=== PATIENT | male | born 1955 | race Caucasian/White ===

== ENCOUNTER 2019-07-11 14:55 | Outpatient (CLI) | payer MEDICARE, OTHER, SELFPAY ==
--- NOTE | 2019-07-11 | CT_ITS ---
WS: [id number] CT CHEST WITH INTRAVENOUS CONTRAST HISTORY: F/U PULMONARY NODULE TECHNIQUE: Contiguous 5 mm axial imaging performed on the thorax. Coronal and sagittal reformats are submitted. All CT scans at [facility] use at least one of these dose optimization techniq ues: automated exposure control; mA and/or kV adjustment per patient size (includes targeted exams wh ere dose is matched to clinical indication); or iterative reconstruction. CONTRAST: Omnipaque 300; 95 mL IV. DLP: 787.99 mGy.cm COMPARISON: 07/05/2018 and 04/03/2018 Lungs and central airway: Well-circumscribed pulmonary nodule in the superior segment of the RIGHT lo wer lobe measures 6 mm. No increase in size since 04/03/2018. There is an additional calcified nodule measuring 12 mm in the more inferior RIGHT lower lobe which is benign and stable also. No new nodule s or pneumonia. Pleura: Normal. No pleural effusion. Heart and pericardium: Normal size heart. No pericardial effusion. Mediastinum and terri: No mediastinum or hilar adenopathy. Vessels: Normal size aortic and pulmonary artery. No coronary artery calcifications. Chest wall and lower neck: No soft tissue masses. Upper abdomen: Simple cyst upper pole RIGHT kidney measures 2.5 cm. No adrenal mass. There are additi onal scattered hypodensities within the liver which have been present on prior examinations. No incre ase in size or number. The largest measures 7 mm in the RIGHT lobe. Some of these hypodensities are t oo small to characterize. Osseous structures: No destructive bone lesions. CT/CT chest w con* [id number] IMPRESSION: 1. Stable superior segment RIGHT lower lobe pulmonary nodule measuring 6 mm. N o change since 04/03/2018. Recommend additional 1 year follow-up chest CT evalu ation. 2. Benign RIGHT lower lobe granuloma. 3. Hepatic and RIGHT renal cysts.
[2019-07-11] MEDS: iohexol 300 mg/mL 100 mL Btl IV (15:47)
== END 2019-07-11 14:56 | disposition home or self-care (01) ==
LOC: CT 14:56
PROVIDERS: PCP Internal Medicine
DX: J84.10 Pulmonary fibrosis, unspecified (principal); N28.1 Cyst of kidney, acquired; K76.89 Other specified diseases of liver; R91.1 Solitary pulmonary nodule
CPT/HCPCS: 71260

== ENCOUNTER 2019-07-14 06:00 | Outpatient (RCR) | payer MEDICARE, OTHER, SELFPAY | END 2019-08-13 23:59 | disposition home or self-care (01) | LOC: SPT 06:00 | PROVIDERS: PCP Internal Medicine; Referring Provider Internal Medicine; Visit Provider Internal Medicine | DX: M25.511 Pain in right shoulder (principal) | CPT/HCPCS: 97110; 97162 ==

== ENCOUNTER → 2019-10-14 11:03 | Outpatient (BNVA) | payer MEDICARE, OTHER, SELFPAY | PROVIDERS: PCP Internal Medicine; Visit Provider Specialist | DX: R29.90 Unspecified symptoms and signs involving the nervous system (principal); M47.12 Other spondylosis with myelopathy, cervical region | CPT/HCPCS: 99213; 99214 ==

== ENCOUNTER 2019-10-22 07:45 | Outpatient (CLI) | payer MEDICARE, OTHER, SELFPAY ==
--- NOTE | 2019-10-22 08:05 | MR_ITS ---
WS: [id number] MRI CERVICAL SPINE NONCONTRAST TECHNIQUE: Sagittal T1, T2 and STIR imaging. Axial T2, gradient, and fiesta imaging. CLINICAL INFORMATION: R20.0 Anesthesia of skin.. COMPARISON: MRI 9 4,012 FINDINGS: Straightening of the normal cervical lordosis. Cord signal is normal. No high-grade central canal noel nosis. Mild disc osteophyte complex at C5-C6 and C6-C7. C2-C3: Normal. C3-C4: Mild disc osteophytic ridging. Mild left and no significant right foraminal narrowing. Spinal canal is patent. Mild facet arthropathy. C4-C5: Mild disc osteophytic ridging. Moderate left and mild right bony foraminal narrowing. Mild fac et arthropathy. Spinal canal is patent. C5-C6: Disc osteophyte complex with endplate ridging. Moderate bilateral bony foraminal narrowing. Mi ld facet arthropathy. Spinal canal is patent. C6-C7: Disc osteophyte complex with slight effacement of ventral thecal sac. Moderate left greater th an right bony foraminal narrowing. C7-T1: Mild left and no significant right foraminal narrowing. Mild disc osteophyte complex. Spinal c anal is patent Visualized brain stem structures: Normal. Prevertebral soft tissues: Normal. MR/MR cervical spin wo con* [id number] IMPRESSION: 1. Straightening of the normal cervical lordosis. Cord signal is normal. No hi gh-grade central canal narrowing. 2. Mild disc osteophyte complexes C5-C6 and C6-C7 with slight effacement of ve ntral thecal sac. This appears unchanged since 2011. 3. Multilevel mild to moderate bony foraminal narrowing worse at left C4-5, b ilateral C5-C6 and bilateral C6-7.
[2019-10-22 10:08] LABS: Basophils % 0.4 %; Eosinophils # 0.2 10^3/uL (0.0-0.8); Eosinophils % 2.4 %; Hematocrit 51.5 % (42.0-52.0); Hemoglobin 16.6 g/dL (11.7-16.6); Lymphocytes # 1.2 10^3/uL (0.8-4.8); Mean Corpuscular HGB Conc 32.2 g/dL (30.0-36.0); Mean Corpuscular Hemoglobin 28.6 pg (28.0-34.0); Mean Corpuscular Volume 88.8 fL (80-94); Mean Platelet Volume 9.5 fL (7.4-10.4); Monocytes # 0.4 10^3/uL (0.2-0.9); Monocytes % 6.3 %; Neutrophils # 5.2 10^3/uL (1.8-7.7); Neutrophils % 73.5 %; Nucleated Red Blood Cells % 0 %; Platelet Count 228 10^3/cmm (130-400); Red Cell Distribution Width 13.6 % (12.1-15.1)
[2019-10-22 10:39] LABS: Alanine Aminotransferase 23 U/L (0-41); Albumin Level 4.1 g/dL (3.5-5.2); Alkaline Phosphatase 66 IU/L (40-130); Anion Gap 14.7 (5-19); Aspartate Amino Transferase 22 U/L (0-40); Blood Urea Nitrogen 16 mg/dL (8-23); Calcium 9.8 mg/dL (8.5-10.5); Carbon Dioxide 27 mmol/L (22-29); Chloride 101 mmol/L (98-107); Glucose 111 mg/dL (65-115); Osmolality Calculated 283 mOsm/kg (285-295); Potassium 4.7 mmol/L (3.5-5.1); Sodium 138 mmol/L (136-145); Thyroid Stimulating Hormone 1.66 uIU/mL (0.27-4.20); Total Bilirubin 0.5 mg/dL (0.15-1.2); Total Protein 7.1 g/dL (6.6-8.7)
[2019-10-22 11:00] LABS: Erythrocyte Sedimentation Rate 6 mm/hr (0-10)
== END 2019-10-22 07:46 | disposition home or self-care (01) ==
PROVIDERS: PCP Internal Medicine; Visit Provider Specialist
DX: Z00.00 Encounter for general adult medical examination without abnormal findings (principal); R20.0 Anesthesia of skin; M25.78 Osteophyte, vertebrae; M48.02 Spinal stenosis, cervical region
CPT/HCPCS: 36415; 72141; 80053; 84443; 85025; 85651

== ENCOUNTER → 2020-01-21 11:06 | Outpatient (BNVA) | payer OTHER, SELFPAY | PROVIDERS: PCP Internal Medicine; Visit Provider Specialist | DX: G47.33 Obstructive sleep apnea (adult) (pediatric) (principal); R07.9 Chest pain, unspecified; M47.12 Other spondylosis with myelopathy, cervical region | CPT/HCPCS: 99214 ==

== ENCOUNTER 2020-02-06 07:27 | Outpatient (CLI) | payer MEDICARE, OTHER, SELFPAY ==
--- NOTE | 2020-02-06 07:29 | ECG_ITS ---
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 Interpretive Statements NAME OF STUDY: LEXISCAN SESTAMIBI STRESS TEST INDICATION: [Chest Pain, ] Procedure: At the baseline, the blood pressure was 132/79 mmHg,with a heart rate of 60 bpm. The electrocardiogram showed normal sinus rhythm with sinus arrhythmia and no significant ST T wave changes. Lexiscan was infused over a period of 20 seconds. A total of 0.4 mg of Lexiscan was infused. Stress phase was continued for a total of 5 minutes. Heart rate at the end of stress phase was 77 bpm. Blood pressure was 123/73 mmHg. The EKG at the peak infusion revealed sinus rhythm with no significant changes. Sestamibi was injected 20 seconds after the Lexiscan infusion. Blood pressure at the end of recovery phase was 127/72 mmHg. Heart rate was 78 bpm Conclusion: 1. Normal EKG response to Lexiscan infusion. 2. No Lexiscan induced chest pain or cardiac arrhythmia. 3. Normal heart rate and blood pressure response. 4. Sestamibi/sestamibi perfusion scan pending; see separate report. Electronically Signed On 02-07-2020 17:09:07 CDT by Abner Aleman M.D. [email or web address]
--- NOTE | 2020-02-06 07:30 | NMCV_ITS ---
NM sully perf SPECT r/s* [id number] Elpidio Delgado Age: 64 Gender: M : 1955 Exam Date: 02/06/2020 07:30 Ordering Phys: Leslie Rivera MD Technologist: GRECIA Oliveros Exam Location: [facility] Indications: CHEST PAIN STRESS TEST Please [facility] IMAGE PROTOCOL Rest/Stress 1 Lexiscan Day Radiopharmaceutical Dose (mCi) Administration Site Administered by Rest: Tc-99m 10.7 IV GRECIA Diaz Sestamibi Stress:Tc-99m 32.9 IV GRECIA Diaz Sestamibi Rest: 06-Feb-2020 60 Discovery 630 Stress: 06-Feb-2020 30 Discovery 630 0.4mg Lexiscan. Images obtained in supine and prone position. SPECT RESULTS Technical Quality: Excellent Raw Data Analysis: Normal Image Corrections: No attenuation or motion correction applied Summed Stress Score: 0 Summed Rest Score: 3 Summed Difference Score: 0 PERFUSION FINDINGS Very small size perfusion abnormality of mild severity of apical septal, apical inferior and apical ware on rest images with improved tracer uptake on stress images. FUNCTIONAL RESULTS (calculated via Gated SPECT) Stress Image LV EF (%): 68 Stress EDV (mL):120 TID: 0.95 Stress ESV (mL):38 FUNCTIONAL FINDINGS: The left ventricle is normal in size. Transient Ischemia Dilatation of 0.95. There is normal left ventricular systolic function. The left ventricular ejection fraction is normal with a value of 68%. There is normal left ventricular wall thickening. Normal end-diastolic and end-systolic volumes. IMPRESSIONS 1. Myocardial perfusion imaging is normal. Attenuation artifact noted in apical ware. 2. Overall left ventricular systolic function is normal without regional wall motion abnormalities. 3. The left ventricular ejection fraction is normal with a value of 68%. 4. This study suggests a low likelihood of angiographically significant coronary artery disease. Yu Schultz MD (Electronically Signed) Final Date: 06 February 2020 18:25 S
[2020-02-06 07:40] VITALS: BMI 27.6
[2020-02-06] MEDS: regadenoson 0.4 Mg/5 ml Syringe IVP (09:07)
[2020-02-06 09:25] VITALS: BP 127/72; PULSE 77
== END 2020-02-06 07:28 | disposition home or self-care (01) ==
LOC: CDL 07:28
PROVIDERS: PCP Internal Medicine; Visit Provider Specialist
DX: R07.9 Chest pain, unspecified (principal)
CPT/HCPCS: 78452; 93017; A9500; J2785

== ENCOUNTER 2020-03-08 10:45 | Emergency (ER) | payer MEDICARE, OTHER, SELFPAY ==
[2020-03-08 10:54] VITALS: BP 128/95; PULSE 76; RESP 20; TEMP 37.2; O2SAT 97; BMI 28.0
--- NOTE | 2020-03-08 11:03 | W.ED.ANIMALB ---
HPI - Animal Bite General: Chief Complaint: Animal Bite Stated Complaint: ANIMAL SCRATCH Time Seen by Provider: 03/08/20 10:47 History of Present Illness: HPI narrative: Patient is a 64-year-old male comes to the ED after being scratched by a cat. Incident occurred on Monday. Patient says it was a wild cat and has not been able to find since incident. He is of course unaware of its vaccination history. Scratch occurred on patient's chin and he describes as being very mild and did not even realize it broke skin until his noticed he had some blood chin. Patient says he then immediately rinsed out and cleaned his chin up. He has no pain or swelling around chin currently. His biggest worry is that he needs to be vaccinated for rabies. Patient is up-to-date on his tetanus and got it within the last 6 years. Associated symptoms: Deny chills, fever(s) or headache(s) Review of Systems Const: Denies: fever(s), chills or fatigue Eyes: Denies: change in vision or eye discomfort ENMT: Denies: throat pain, odynophagia, nasal discharge or nasal congestion Card: Denies: chest pain, palpitations, edema, swelling of feet/ankles, dyspnea on exertion or orthopnea Resp: Denies: dyspnea, productive cough or non-productive cough GI: Denies: abdominal pain, nausea, vomiting, diarrhea, constipation or hematochezia : Denies: flank pain, difficulty urinating, dysuria or hematuria Musc: Denies: neck pain, back pain or extremity swelling Skin/Breast: Reports: new lesions (Patient was scratched by while cat on chin.); Denies: rash Neuro: Denies: headache(s), numbness in extremities or weakness in extremities [facility] PFSH: Social History Smoking and tobacco status: never smoked Physical Exam Const: COMMON NORMALS: no acute distress, patient oriented x3, healthy appearing and alert GENERAL APPEARANCE: cooperative and comfortable HENMT: COMMON NORMALS: normocephalic HEAD & SCALP: normocephalic FACE & SINUS: normal facial exam MOUTH: Normal oral and palatal mucosa present THROAT: posterior oropharynx normal and uvula midline OTHER: No visible abrasion or scar identified on chin. No erythema or warmth noted on chin either. Neck/C-Spine: COMMON NORMALS: supple GENERAL: Yes normal visual inspection Resp: COMMON NORMALS: normal respiratory effort, No retractions, No use of accessory muscles and clear to auscultation bilaterally AUSCULTATION: clear to auscultation bilaterally Cardio: COMMON NORMALS: regular rate, regular rhythm, S1 normal heart sound present, S2 normal heart sound present, No gallops present (Cardio), No clicks present (Cardio), No murmurs present (Cardio) and Peripheral pulses 2+ throughout RATE: regular rate RHYTHM: regular rhythm HEART SOUNDS: S1 normal heart sound present and S2 normal heart sound present PERIPHERAL PULSES: Peripheral pulses 2+ throughout GI: COMMON NORMALS: Normal to inspection, nondistended, normoactive bowel sounds present, Soft to palpation, non-tender and no masses PALPATION: Yes Soft to palpation : COMMON NORMALS: Yes no CVA tenderness BLADDER/KIDNEY EXAM: Yes no CVA tenderness Back/Pelvis: COMMON NORMALS: no CVA tenderness Extremity: COMMON NORMALS: normal to inspection Neuro: COMMON NORMALS: patient oriented x3 and moves all extremities SENSORIUM/ORIENTATION: Yes alert Skin: NARRATIVE SKIN EXAM: No visible abrasion or scar identified on chin. No erythema or warmth noted on chin either. GENERAL SKIN EXAM: dry skin Course Vital Signs: Vital signs: Vital Signs Temperature 98.9 F 03/08/20 10:54 Pulse Rate 76 03/08/20 10:54 Respiratory Rate 20 H 03/08/20 10:54 Blood Pressure 128/95 03/08/20 10:54 Pulse Oximetry 97 03/08/20 10:54 MDM - Animal Bite MDM Narrative: Medical decision making narrative: Patient is a 64-year-old male who comes to the ED after being scratched by A Wild Cat on the chin. Exam shows no visible abrasion or scarring on chin. No erythema or warmth identified either. patient's main concern is getting rabies vaccination. Patient is up-to-date on his tetanus and got it within the last 6 years. Patient was given the rabies vaccine and rabies immune globulin here in the ED. Patient was also given a dose of Augmentin while here in the ED. Patient sent home with prescription for azithromycin and Augmentin. He was told to return to urgent care or ED on day 3, 7 and 14 to get other rabies series shots. Follow-up with PCP in 7 to 10 days. Return to ED precautions given. Patient understood and agreed with plan. Discharge Plan Discharge Patient Disposition: Home Clinical Impression: Need for post exposure prophylaxis for rabies Cat scratch of face Qualifiers: Encounter type: initial encounter Qualified Code(s): S00.81XA - Abrasion of other part of head, initial encounter Condition: Stable Prescriptions: New amoxicillin-pot clavulanate 500-125 mg tablet 1 tab PO BID 7 Days Qty: 14 RF: 0 azithromycin 250 mg tablet See Rx Instructions .ROUTE .COMPLEX Qty: 6 RF: 0 No Action lisinopril 30 mg tablet 30 mg PO DAILY RF: 0 famotidine [Pepcid] 20 mg tablet 20 mg PO DAILY RF: 0 sulfamethoxazole-trimethoprim [Bactrim DS] 800-160 mg tablet 1 tab PO BID RF: 0 gabapentin 300 mg capsule 300 mg PO BID RF: 0 aspirin [Adult Aspirin Regimen] 81 mg tablet,delayed release (DR/EC) 81 mg PO DAILY RF: 0 hydrocodone-acetaminophen [[place]] 5-325 mg tablet 1 tab PO BID PRNRF: 0 tramadol 50 mg tablet 50 mg PO DAILY Qty: 30 RF: 5 fexofenadine [Megan Allergy] 60 mg tablet 60 mg PO BID RF: 0 alprazolam 0.25 mg tablet 0.25 mg PO DAILY PRNRF: 0 diphenhydramine HCl [Benadryl] 25 mg capsule 25 mg PO TID PRNRF: 0 melatonin 3 mg capsule 3 mg PO DAILY RF: 0 pramipexole [Mirapex] 1.5 mg tablet 1.5 mg PO DAILY RF: 0 tamsulosin [Flomax] 0.4 mg capsule 0.4 mg PO DAILY RF: 0 mecobalamin (vitamin B12) 5,000 mcg lozenge 5,000 mcg PO DAILY RF: 0 (DME) CPAP Supplies and Settings Adjustment See Rx Instructions .Route .MEDSUPPLY Qty: 1 RF: 0 Discharge Orders: Discharge Order (Routine); Ordered 03/08/20 Ordered By: Clement Martinez Referrals: Tess Weller MD [Primary Care Provider] - Discharge Diet: Regular Discharge Activity: Resume usual activity Patient Instructions: Rabies Vaccine (Injection), Rabies Immune Globulin (Injection), Rabies (ED), Cat Scratch Disease (ED) Activity Restrictions/Additional Instructions: Follow-up with medical provider as directed. return to the ED for rabies vaccination dose on day 3, 7 and 14. take medications as prescribed. Return to the ER or your medical provider if condition worsens. Please read and understand discharge instructions. If any questions, please ask. Coding Level of Care Code ED Superintendent Terminal for Maric[employer]en Fwd Exam Comprehensive
[2020-03-08] MEDS: rabies vaccine 2.5 unit SDV IM (12:06)
[2020-03-08] MEDS: rabies IG 300 unit/mL SDV 1 mL IM (12:15)
[2020-03-08] MEDS: amoxicillin-clav 500-125 mg Tablet 1 TAB PO (12:27)
[2020-03-08 13:10] VITALS: BP 114/71; PULSE 78; RESP 14; O2SAT 99
== END 2020-03-08 13:12 | disposition home or self-care (01) ==
PROVIDERS: Emergency Provider Physician Assistant; PCP Internal Medicine
DX: S00.81XA Abrasion of other part of head, initial encounter (principal); W55.03XA Scratched by cat, initial encounter; Z20.3 Contact with and (suspected) exposure to rabies; Z29.14 Encounter for prophylactic rabies immune globulin; Z79.82 Long term (current) use of aspirin; Z23 Encounter for immunization
CPT/HCPCS: 12345; 90375; 90471; 90675; 96372; 99281; 99283

== ENCOUNTER 2020-05-05 11:58 | Outpatient (RCR) | payer MEDICARE, OTHER, SELFPAY | END 2020-05-14 23:59 | disposition home or self-care (01) | LOC: SPT 11:58 | PROVIDERS: PCP Internal Medicine; Referring Provider Physician Assistant Surgical; Visit Provider Physician Assistant Surgical | DX: Z47.89 Encounter for other orthopedic aftercare (principal) | CPT/HCPCS: 97110; 97161 ==

== ENCOUNTER 2020-05-15 06:00 | Outpatient (RCR) | payer MEDICARE, OTHER, SELFPAY | END 2020-06-14 23:59 | disposition home or self-care (01) | LOC: SPT 06:00 | PROVIDERS: PCP Internal Medicine; Referring Provider Physician Assistant Surgical; Visit Provider Physician Assistant Surgical | DX: Z47.89 Encounter for other orthopedic aftercare (principal) | CPT/HCPCS: 97110 ==

== ENCOUNTER 2020-06-15 06:00 | Outpatient (RCR) | payer MEDICARE, OTHER, SELFPAY | END 2020-07-12 23:59 | disposition home or self-care (01) | LOC: SPT 06:00 | PROVIDERS: PCP Internal Medicine; Referring Provider Physician Assistant Surgical; Visit Provider Physician Assistant Surgical | DX: Z47.89 Encounter for other orthopedic aftercare (principal) | CPT/HCPCS: 97110 ==

== ENCOUNTER 2020-07-13 06:00 | Outpatient (RCR) | payer MEDICARE, OTHER, SELFPAY | END 2020-08-12 23:59 | disposition home or self-care (01) | LOC: SPT 06:00 | PROVIDERS: PCP Internal Medicine; Referring Provider Physician Assistant Surgical; Visit Provider Physician Assistant Surgical | DX: Z47.89 Encounter for other orthopedic aftercare (principal) | CPT/HCPCS: 97110 ==

== ENCOUNTER → 2020-07-22 08:42 | Outpatient (BNVA) | payer MEDICARE, OTHER, SELFPAY | PROVIDERS: PCP Internal Medicine; Visit Provider Specialist | DX: G47.33 Obstructive sleep apnea (adult) (pediatric) (principal) | CPT/HCPCS: 99214 ==

== ENCOUNTER 2020-08-13 06:00 | Outpatient (RCR) | payer MEDICARE, OTHER, SELFPAY | END 2020-09-01 23:00 | disposition home or self-care (01) | LOC: SPT 06:00 | PROVIDERS: PCP Internal Medicine; Referring Provider Physician Assistant Surgical; Visit Provider Physician Assistant Surgical | DX: Z47.89 Encounter for other orthopedic aftercare (principal); M25.511 Pain in right shoulder | CPT/HCPCS: 97110 ==

== ENCOUNTER → 2020-09-16 08:29 | Outpatient (BNVA) | payer MEDICARE, OTHER, SELFPAY | PROVIDERS: PCP Internal Medicine; Visit Provider Urology | DX: N41.1 Chronic prostatitis (principal); N39.9 Disorder of urinary system, unspecified; Z12.5 Encounter for screening for malignant neoplasm of prostate | CPT/HCPCS: 81003; G0103 ==

== ENCOUNTER 2020-10-01 07:05 | Outpatient (CLI) | payer MEDICARE, OTHER, SELFPAY ==
--- NOTE | 2020-10-01 | US_ITS ---
WS: [id number] ULTRASOUND THYROID TECHNIQUE: Ultrasound of the thyroid. CLINICAL INFORMATION: HOARSENESS COMPARISON: None. FINDINGS: Thyroid: Right and left thyroid lobes are normal in size and echotexture. No thyroid nodules are pres ent. Right thyroid lobe: 3.7 cm x 1.1 cm x 0.7 cm Left thyroid lobe: 3.7 cm x 1.5 cm x 1.2 cm. Isthmus: 0.5 mm. Cervical lymphadenopathy: None. US/US thyroid [id number] IMPRESSION: Normal thyroid ultrasound examination.
== END 2020-10-01 07:06 | disposition home or self-care (01) ==
PROVIDERS: PCP Internal Medicine; Visit Provider Internal Medicine
DX: R49.0 Dysphonia (principal)
CPT/HCPCS: 76536

== ENCOUNTER → 2021-02-08 11:32 | Outpatient (BNVA) | payer MEDICARE, OTHER, SELFPAY | PROVIDERS: PCP Internal Medicine; Visit Provider Specialist | DX: G47.33 Obstructive sleep apnea (adult) (pediatric) (principal); M47.12 Other spondylosis with myelopathy, cervical region; M54.5 Low back pain | CPT/HCPCS: 99214 ==

== ENCOUNTER → 2021-03-23 13:20 | Outpatient (BNVA) | payer MEDICARE, OTHER, SELFPAY | PROVIDERS: PCP Internal Medicine; Visit Provider Urology | DX: N41.9 Inflammatory disease of prostate, unspecified (principal) | CPT/HCPCS: 81003 ==

== ENCOUNTER → 2021-04-28 10:28 | Outpatient (BNVA) | payer MEDICARE, OTHER, SELFPAY | PROVIDERS: PCP Internal Medicine; Visit Provider Specialist | DX: G47.33 Obstructive sleep apnea (adult) (pediatric) (principal); M54.50 Low back pain, unspecified; M47.12 Other spondylosis with myelopathy, cervical region | CPT/HCPCS: 99213; 99214 ==

== ENCOUNTER → 2021-06-29 12:36 | Outpatient (BNVA) | payer MEDICARE, OTHER, SELFPAY | PROVIDERS: PCP Internal Medicine; Visit Provider Urology | DX: N41.1 Chronic prostatitis (principal); N30.20 Other chronic cystitis without hematuria; N40.1 Benign prostatic hyperplasia with lower urinary tract symptoms | CPT/HCPCS: 81003 ==

== ENCOUNTER → 2021-09-08 10:24 | Outpatient (BNVA) | payer MEDICARE, OTHER, SELFPAY | PROVIDERS: PCP Internal Medicine; Visit Provider Family Medicine | DX: S20.219A Contusion of unspecified front wall of thorax, initial encounter (principal); X58.XXXA Exposure to other specified factors, initial encounter | CPT/HCPCS: 71046 ==

== ENCOUNTER → 2022-02-07 08:56 | Outpatient (BNVA) | payer MEDICARE, OTHER, SELFPAY | PROVIDERS: PCP Internal Medicine; Visit Provider Specialist | DX: G47.33 Obstructive sleep apnea (adult) (pediatric) (principal); M76.899 Other specified enthesopathies of unspecified lower limb, excluding foot; M72.0 Palmar fascial fibromatosis [Dupuytren] | CPT/HCPCS: 99213 ==

== ENCOUNTER 2022-03-08 06:00 | Outpatient (RCR) | payer MEDICARE, OTHER, SELFPAY | END 2022-03-14 23:59 | disposition home or self-care (01) | LOC: SPT 06:00 | PROVIDERS: PCP Internal Medicine; Visit Provider Specialist | DX: M76.899 Other specified enthesopathies of unspecified lower limb, excluding foot (principal) | CPT/HCPCS: 97110; 97162 ==

== ENCOUNTER 2022-03-08 06:00 | Outpatient (RCR) | payer MEDICARE, OTHER, SELFPAY | END 2022-03-14 23:59 | disposition home or self-care (01) | LOC: SOT 06:00 | PROVIDERS: PCP Internal Medicine; Visit Provider Specialist | DX: M72.0 Palmar fascial fibromatosis [Dupuytren] (principal) | CPT/HCPCS: 97110; 97165 ==

== ENCOUNTER 2022-03-15 06:00 | Outpatient (RCR) | payer MEDICARE, OTHER, SELFPAY | END 2022-04-13 23:59 | disposition home or self-care (01) | LOC: SPT 06:00 | PROVIDERS: PCP Internal Medicine; Visit Provider Specialist | DX: M72.0 Palmar fascial fibromatosis [Dupuytren] (principal) | CPT/HCPCS: 97110; 97140 ==

== ENCOUNTER 2022-04-05 10:05 | Outpatient (CLI) | payer MEDICARE, OTHER, SELFPAY ==
--- NOTE | 2022-04-05 10:26 | XRR_ITS ---
PROCEDURE INFORMATION: Exam: XR Left Hip Exam date and time: 04/05/2022 10:31 AM Age: 66 years old Clinical indication: Patient HX: Left hip pain, worse past 6 months TECHNIQUE: Imaging protocol: Radiologic exam of the Left hip. Views: 2 or 3 views hip with pelvis when performed. COMPARISON: CT abdomen pelvis w con* [id number] 04/03/2018 1:02 PM FINDINGS: Bones/joints: Unremarkable. No acute fracture. Soft tissues: Unremarkable. XR/XR hip LT 2-3V wo/w pel* [id number] IMPRESSION: Negative for acute bony abnormality..
== END 2022-04-05 10:06 | disposition home or self-care (01) ==
PROVIDERS: PCP Internal Medicine; Visit Provider Internal Medicine
DX: M25.552 Pain in left hip (principal)
CPT/HCPCS: 73502

== ENCOUNTER 2022-05-05 06:40 | Outpatient (CLI) | payer MEDICARE, OTHER, SELFPAY ==
--- NOTE | 2022-05-05 07:17 | MR_ITS ---
WS: [id number] MRI LUMBAR SPINE NONCONTRAST TECHNIQUE: Sagittal T1, T2 and STIR imaging. Axial T1 and T2 imaging. CLINICAL INFORMATION: LEFT HIP PAIN COMPARISON: MRI 2008 FINDINGS: Mild lumbar curve. No acute compression. Disc desiccation worse at L3-L4 L4-L5 and L5-S1. This is pro gressed since 2018. Endplate degenerative changes at L3-L4. L1-L2: Normal. L2-L3: Mild annular bulging. Mild facet arthropathy. Spinal canal and foramen are patent. L3-L4: Mild disc bulging with endplate degenerative changes. Slight impingement traversing L4 nerve r oots bilaterally. Mild facet arthropathy. Small RIGHT foraminal protrusion contacts the exiting RIGHT L3 nerve root. Mild RIGHT greater than LEFT foraminal narrowing. L4-L5: Mild annular bulging with slight impingement traversing L5 nerve roots bilaterally. Mild facet arthropathy with ligamentum flavum hypertrophy. RIGHT foraminal protrusion with mild RIGHT foraminal narrowing. LEFT foramen is patent. L5-S1: LEFT eccentric disc bulging with mild to moderate LEFT foraminal narrowing and contact of the exiting LEFT L5 nerve root. RIGHT foramen is patent. Mild facet arthropathy. Spinal canal is patent. Partially visualized RIGHT renal cyst. 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 Visualized pelvic bony structures: Normal. Paravertebral soft tissues: Normal. MR/MR lumbar spine wo con* [id number] IMPRESSION: 1. Mild lumbar curve. No acute compression. No high-grade central canal stenos is. 2. Disc space narrowing L3-L5 has progressed compared to 2008. 3. RIGHT foraminal protrusion L3-L4 impinges the exiting RIGHT L3 nerve root. Recommend correlation for RIGHT L3 nerve root symptoms. Slight narrowing of the RIGHT greater than LEFT subarticular recess at this level. 4. Annular bulging L4-L5 with slight impingement traversing L5 nerve roots lynn aterally. RIGHT foraminal protrusion with mild RIGHT foraminal narrowing. 5. Mild to moderate LEFT L5-S1 foraminal narrowing with contact of the exiting LEFT L5 nerve root. 6. Above findings have progressed compared to 2008.
== END 2022-05-05 06:41 | disposition home or self-care (01) ==
LOC: RAD 06:41
PROVIDERS: PCP Internal Medicine; Visit Provider Internal Medicine
DX: M25.552 Pain in left hip (principal); M51.26 Other intervertebral disc displacement, lumbar region
CPT/HCPCS: 72148

== ENCOUNTER → 2022-07-25 15:33 | Outpatient (BNVA) | payer MEDICARE, OTHER, SELFPAY | PROVIDERS: PCP Family Medicine; Visit Provider Family Medicine | DX: E03.9 Hypothyroidism, unspecified (principal); M72.0 Palmar fascial fibromatosis [Dupuytren] | CPT/HCPCS: 80053; 84443; 85025; 86140 ==

== ENCOUNTER → 2022-09-30 09:09 | Outpatient (BNVA) | payer MEDICARE, OTHER, SELFPAY | PROVIDERS: PCP Family Medicine; Visit Provider Otolaryngology | DX: H91.93 Unspecified hearing loss, bilateral (principal) | CPT/HCPCS: 99203 ==

== ENCOUNTER 2022-10-24 09:05 | Outpatient (CLI) | payer MEDICARE, OTHER, SELFPAY ==
--- NOTE | 2022-10-24 09:30 | MR_ITS ---
WS: [id number] MRI HEAD WITH CONTRAST WITH ATTENTION TO THE INTERNAL AUDITORY CANALS TECHNIQUE: Sagittal T1, T2 axial, T2 axial flair, axial susceptibility weighted imaging, axial diffus ion weighted images, and coronal T2 images were obtained. Pre and post T1 axial and post T1 coronal i mages. ADC and FSPGR images. Post gadolinium images with attention to the internal auditory canals. A xial fiesta imaging. CLINICAL INFORMATION: unilateral hearing loss COMPARISON: None. FINDINGS: No evidence of restricted diffusion to suggest acute ischemia. Ventricular system and basal cisterns are patent. Mild small vessel changes. Mild parenchymal volume loss. Benign cerebellar arachnoid cyst or cisterna magna. Chronic thinning of the occipital bone. No hemosiderin on the susceptibly weighte d images. Normal optic chiasm and pituitary infundibulum. Temporal lobes and hippocampal formations a re normal in appearance. Proximal 7th and 8th cranial nerves are normal in appearance. Normal trigeminal nerve root entry zone s. No evidence of enhancing IAC or CP angle mass. LEFT mastoid air cells well aerated. No abnormal gadol inium enhancement. Normal dural venous sinuses. MR/MR iac's wo/w con* [id number] IMPRESSION: 1. Proximal 7th and 8th cranial nerves are normal in appearance. No evidence o f enhancing IAC or CP angle mass. 2. Normal trigeminal nerve root/zones. 3. Paranasal sinuses and mastoid air cells well aerated. 4. Normal visualized posterior nasopharynx. 5. Minimal small vessel changes. Mild parenchymal volume loss. 6. No hemosiderin on susceptibly weighted images. 7. 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
[2022-10-24] MEDS: gadobenate dimeglumine 20 mL vial IV (10:59)
== END 2022-10-24 09:06 | disposition home or self-care (01) ==
PROVIDERS: PCP Family Medicine; Visit Provider Otolaryngology
DX: H91.90 Unspecified hearing loss, unspecified ear (principal); G93.0 Cerebral cysts
CPT/HCPCS: 70553; A9577

== ENCOUNTER → 2022-11-07 08:26 | Outpatient (BNVA) | payer MEDICARE, OTHER, SELFPAY | PROVIDERS: PCP Family Medicine; Visit Provider Otolaryngology | DX: H91.93 Unspecified hearing loss, bilateral (principal) | CPT/HCPCS: 99212; 99213 ==

== ENCOUNTER 2022-12-18 05:24 | Emergency (ER) | payer MEDICARE, OTHER, SELFPAY ==
[2022-12-18 05:27] VITALS: BP 132/64; PULSE 79; RESP 16; TEMP 37.1; O2SAT 95; BMI 27.1
[2022-12-18 05:44] LABS: Basophils # 0.1 10^3/uL (0.0-0.1); Basophils % 0.4 %; Eosinophils # 0.3 10^3/uL (0.0-0.8); Eosinophils % 2.2 %; Hematocrit 49.6 % (42.0-52.0); Hemoglobin 16.4 g/dL (11.7-16.6); Lymphocytes # 1.8 10^3/uL (0.8-4.8); Lymphocytes % 16.1 %; Mean Corpuscular HGB Conc 33.1 g/dL (30.0-36.0); Mean Corpuscular Hemoglobin 28.7 pg (28.0-34.0); Mean Corpuscular Volume 86.7 fl (80-94); Monocytes # 1.1 10^3/uL (0.2-0.9); Monocytes % 9.5 %; Neutrophils # 7.97 10^3/uL (1.8-7.7); Neutrophils % 71.2 %; Nucleated Red Blood Cells % 0 %; Platelet Count 245 10^3/cmm (130-400); Red Blood Count 5.72 10^6/uL (4.1-5.3); Red Cell Distribution Width 13.9 % (12.1-15.1); White Blood Count 11.2 10^3/uL (4.0-10.0)
[2022-12-18 05:49] VITALS: BP 132/64; PULSE 79; RESP 16; O2SAT 93
[2022-12-18 05:57] LABS: INR 0.93 (0.8-1.2)
[2022-12-18 06:02] LABS: Alanine Aminotransferase 17 U/L (0-41); Albumin Level 4.2 g/dL (3.5-5.2); Alkaline Phosphatase 95 U/L (40-130); Anion Gap 12.9 (5-19); Aspartate Amino Transferase 17 U/L (0-40); Blood Urea Nitrogen 23 mg/dL (8-23); Calcium 9.2 mg/dL (8.5-10.5); Carbon Dioxide 28 mmol/L (22-29); Chloride 104 mmol/L (98-107); Globulin 2.2 g/dL (1.3-4.6); Glomerular Filtration Rate 74.3 mL/min (90-130); Glucose 110 mg/dL (65-115); Osmolality Calculated 296 mOsm/kg (285-295); Potassium 3.9 mmol/L (3.5-5.1); Sodium 141 mmol/L (136-145); Total Bilirubin 0.3 mg/dL (0.15-1.2); Total Protein 6.4 g/dL (6.6-8.7)
--- NOTE | 2022-12-18 06:07 | ED_ITS ---
HPI - GI Bleed General: Chief complaint: GI Bleed Stated complaint: rectal bleeding Time Seen by Provider: 12/18/22 06:07 Source: patient Mode of arrival: ambulatory Limitations: no limitations History of Present Illness: 67-year-old male who states that he ate at a [employer] restaurant yesterday and just after he started having severe abdominal cramping states he had an episode of diarrhea and had a slight amount of blood in it. He states that he also had a bloody bowel movement this morning with he states a small amount of blood as well no clots he states his pain is improved greatly he is in no pain currently denies any black tarry stools. Associated symptoms: Reports abdominal pain; Denies chills, fever(s), nausea, rash or vomiting Review of Systems Const: Denies: fever(s), chills, body aches or change in appetite ENMT: Denies: throat pain or dental pain Card: Denies: chest pain Resp: Denies: dyspnea GI: Reports: abdominal pain and hematochezia; Denies: nausea, vomiting or diarrhea Musc: Denies: neck pain or back pain Skin/Breast: Denies: rash PFSH ED PFSH: Medical History Chronic prostatitis Essential hypertension Hearing loss Numbness of arm Obstructive sleep apnea Surgical History H/O shoulder surgery Family History Father , at age 94 Blood clot associated with vein wall inflammation Mother , at age 83 Cerebral amyloid angiopathy Social History Smoking and tobacco status: never smoked Second hand smoke exposure: No Alcohol intake: current Alcohol intake frequency: few times a week Substance/Drug Use: never Marital status: Current occupational status: retired Current occupation: [employer] Physical Exam Const: COMMON NORMALS: no acute distress, patient oriented x3 and healthy appearing HENMT: COMMON NORMALS: normocephalic and atraumatic HEAD & SCALP: normocephalic and atraumatic Neck/C-Spine: COMMON NORMALS: full ROM and supple Chest: COMMONS NORMALS: normal inspection of the chest Resp: COMMON NORMALS: normal respiratory effort Cardio: COMMON NORMALS: regular rate, regular rhythm and No murmurs present (Cardio) RATE: regular rate RHYTHM: regular rhythm GI: COMMON NORMALS: Normal to inspection, nondistended, normoactive bowel sounds present, Soft to palpation, non-tender and no masses PALPATION: Yes Soft to palpation OTHER: no blood on rectal exam internal hemorrhoid noted Extremity: COMMON NORMALS: normal to inspection and full ROM Neuro: COMMON NORMALS: patient oriented x3, moves all extremities and no focal motor deficits Psych: COMMON NORMALS: mental status grossly normal, Normal thought process present and cooperative THOUGHT PROCESS: Normal thought process present Skin: COMMON NORMALS: no rashes or lesions noted and no wounds GENERAL SKIN EXAM: no rashes or lesions noted Course Vital Signs: Vital signs: Vital Signs Temperature 98.8 F 12/18/22 05:27 Pulse Rate 79 12/18/22 05:27 Respiratory Rate 16 12/18/22 05:27 Blood Pressure 132/64 12/18/22 05:27 Pulse Oximetry 95 12/18/22 05:27 Oxygen Delivery Me thod Room Air 12/18/22 05:27 MDM - GI Bleed Medical Decision Making Patient presents here with abdominal pain also some blood in his stool on rectal exam he does have an internal hemorrhoid no bleeding at this time simply GI distress from food causing his pain his abdominal exam is benign no tenderness his white count is normal his hemoglobin is normal he stable for discharge she is to follow-up with PCP if he does have worsening pain or worsening bleeding he is to return. Lab Data 12/18/22 05:38 12/18/22 05:38 Laboratory Results WBC 11.2 10^3/uL (4.0-10.0) H 12/18/22 05:38 RBC 5.72 10^6/uL (4.1-5.3) H 12/18/22 05:38 Hgb 16.4 g/dL (11.7-16.6) 12/18/22 05:38 Hct 49.6 % (42.0-52.0) 12/18/22 05:38 MCV 86.7 fl (80-94) 12/18/22 05:38 MCH 28.7 pg (28.0-34.0) 12/18/22 05:38 MCHC 33.1 g/dL (30.0-36.0) 12/18/22 05:38 RDW 13.9 % (12.1-15.1) 12/18/22 05:38 Plt Count 245 10^3/cmm (130-400) 12/18/22 05:38 MPV 9.0 fL (7.4-10.4) 12/18/22 05:38 Neut % (Auto) 71.2 % 12/18/22 05:38 Lymph % (Auto) 16.1 % 12/18/22 05:38 [place] % (Auto) 9.5 % 12/18/22 05:38 Eos % (Auto) 2.2 % 12/18/22 05:38 Baso % (Auto) 0.4 % 12/18/22 05:38 Neut # (Auto) 7.97 10^3/uL (1.8-7.7) H 12/18/22 05:38 Lymph # (Auto) 1.8 10^3/uL (0.8-4.8) 12/18/22 05:38 [place] # (Auto) 1.1 10^3/uL (0.2-0.9) H 12/18/22 05:38 Eos # (Auto) 0.3 10^3/uL (0.0-0.8) 12/18/22 05:38 Baso # (Auto) 0.1 10^3/uL (0.0-0.1) 12/18/22 05:38 Nucleated RBC % (auto) 0 % 12/18/22 05:38 Nucleated RBCs # 0.0 /100WBC 12/18/22 05:38 PT 12.70 SECONDS (12.1-14.9) 12/18/22 05:38 INR 0.93 (0.8-1.2) 12/18/22 05:38 Sodium 141 mmol/L (136-145) 12/18/22 05:38 Potassium 3.9 mmol/L (3.5-5.1) 12/18/22 05:38 Chloride 104 mmol/L (98-107) 12/18/22 05:38 Carbon Dioxide 28 mmol/L (22-29) 12/18/22 05:38 Anion Gap 12.9 (5-19) 12/18/22 05:38 BUN 23 mg/dL (8-23) 12/18/22 05:38 Creatinine 1.0 mg/dL (0.7-1.2) 12/18/22 05:38 Glucose 110 mg/dL (65-115) 12/18/22 05:38 Calcium 9.2 mg/dL (8.5-10.5) 12/18/22 05:38 Total Bilirubin 0.3 mg/dL (0.15-1.2) 12/18/22 05:38 AST 17 U/L (0-40) 12/18/22 05:38 ALT 17 U/L (0-41) 12/18/22 05:38 Alkaline Phosphatase 95 U/L (40-130) 12/18/22 05:38 Albumin 4.2 g/dL (3.5-5.2) 12/18/22 05:38 Globulin 2.2 g/dL (1.3-4.6) 12/18/22 05:38 Discharge Plan Discharge Patient Disposition: Home Clinical Impression: Hemorrhoids, Lower gastrointestinal hemorrhage, Abdominal pain Condition: Stable Prescriptions: New ondansetron 4 mg tablet,disintegrating 4 mg PO Q6H PRN (Reason: nausea and vomiting) Qty: 14 0RF No Action famotidine [Pepcid] 40 mg tablet 40 mg PO BID carisoprodol [Soma] 350 mg tablet 175 mg PO TID PRN Patient Comments: 1/2 tab melatonin 3 mg capsule 3 mg PO DAILY PRN Patient Comments: nightly zolpidem [Ambien] 10 mg tablet 10 mg PO .prn Qty: 30 1RF Rx Instructions: Take before bed fexofenadine [Megan Allergy] 60 mg tablet 60 mg PO BID diphenhydramine HCl [Benadryl] 25 mg capsule 25 mg PO TID PRN pramipexole [Mirapex] 1.5 mg tablet 0.75 mg PO DAILY esomeprazole magnesium 20 mg capsule,delayed release(DR/EC) 20 mg PO DAILY magnesium 250 mg tablet 250 mg PO BID meloxicam 15 mg tablet 15 mg PO DAILY tramadol 100 mg tablet 100 mg PO BID PRN (Reason: pain) 30 Days Qty: 60 2RF alprazolam 0.25 mg tablet 0.25 mg PO DAILY PRN (Reason: anxiety) 30 Days Qty: 30 5RF hydrocodone-acetaminophen 10-325 mg tablet 1 tab PO TID PRN (Reason: pain) 30 Days Qty: 60 0RF hydrocodone-acetaminophen 10-325 mg tablet 1 tab PO TID PRN (Reason: pain) 30 Days Qty: 60 0RF Rx Instructions: DO NOT FILL UNTIL 11/19/21 sulfamethoxazole-trimethoprim 800-160 mg tablet 1 tab PO BID Qty: 60 12RF doxycycline hyclate 100 mg capsule See Rx Instructions .ROUTE .COMPLEX Qty: 60 6RF Dose Instruction: Take 1 capsule by mouth twice daily Rx Instructions: Take 1 capsule by mouth twice daily finasteride 5 mg tablet See Rx Instructions .ROUTE .COMPLEX Qty: 90 3RF Dose Instruction: Take 1 tablet by mouth once daily Rx Instructions: Take 1 tablet by mouth once daily lisinopril 40 mg tablet 40 mg PO DAILY Qty: 90 3RF amlodipine 2.5 mg tablet 2.5 mg PO DAILY Qty: 90 0RF Discharge Orders: Discharge ED (Routine); Ordered 12/18/22 Ordered By: Mitzy Jimenez Referrals: Didi Gore MD [Primary Care Provider] - Discharge Diet: Advance as tolerated Discharge Activity: Resume usual activity Patient Instructions: Abdominal Pain (ED) Coding Level of Care Code 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
[2022-12-18] MEDS: ondansetron 4 MG Tablet PO (06:14)
== END 2022-12-18 06:15 | disposition home or self-care (01) ==
PROVIDERS: Emergency Provider Emergency Medicine; PCP Family Medicine
DX: I10 Essential (primary) hypertension (principal); K64.4 Residual hemorrhoidal skin tags; R10.9 Unspecified abdominal pain; K92.1 Melena
CPT/HCPCS: 80053; 85025; 85610; 99283; Q0162

== ENCOUNTER → 2023-02-07 09:06 | Outpatient (BNVA) | payer MEDICARE, OTHER, SELFPAY | PROVIDERS: PCP Family Medicine; Visit Provider Specialist | DX: R29.90 Unspecified symptoms and signs involving the nervous system; G47.33 Obstructive sleep apnea (adult) (pediatric); M54.16 Radiculopathy, lumbar region | CPT/HCPCS: 99213 ==

== ENCOUNTER → 2023-04-28 07:51 | Outpatient (BNVA) | payer MEDICARE, OTHER, SELFPAY | PROVIDERS: PCP Family Medicine; Visit Provider Podiatrist Foot & Ankle Surgery | DX: M19.071 Primary osteoarthritis, right ankle and foot; S93.601A Unspecified sprain of right foot, initial encounter; X58.XXXA Exposure to other specified factors, initial encounter | CPT/HCPCS: 73630; 99203 ==

== ENCOUNTER → 2023-08-08 09:35 | Outpatient (BNVA) | payer MEDICARE, OTHER, SELFPAY | PROVIDERS: PCP Family Medicine; Visit Provider Specialist | DX: R29.90 Unspecified symptoms and signs involving the nervous system (principal); G31.84 Mild cognitive impairment of uncertain or unknown etiology; M54.16 Radiculopathy, lumbar region; G47.33 Obstructive sleep apnea (adult) (pediatric) | CPT/HCPCS: 99214 ==

== ENCOUNTER → 2023-10-03 10:52 | Outpatient (BNVA) | payer MEDICARE, OTHER, SELFPAY | PROVIDERS: PCP Family Medicine; Visit Provider Family Medicine | DX: I10 Essential (primary) hypertension (principal); N41.1 Chronic prostatitis; N40.1 Benign prostatic hyperplasia with lower urinary tract symptoms; K21.9 Gastro-esophageal reflux disease without esophagitis; G47.33 Obstructive sleep apnea (adult) (pediatric); H90.3 Sensorineural hearing loss, bilateral; M54.16 Radiculopathy, lumbar region; R40.0 Somnolence | CPT/HCPCS: 80053; 81000; 84153; 85025; 87086 ==

== ENCOUNTER → 2023-10-13 10:12 | Outpatient (BNVA) | payer MEDICARE, OTHER, SELFPAY | PROVIDERS: PCP Family Medicine; Visit Provider Emergency Medicine | DX: S92.515A Nondisplaced fracture of proximal phalanx of left lesser toe(s), initial encounter for closed fracture (principal); X58.XXXA Exposure to other specified factors, initial encounter | CPT/HCPCS: 73630 ==

== ENCOUNTER → 2023-10-30 09:12 | Outpatient (BNVA) | payer MEDICARE, OTHER, SELFPAY | PROVIDERS: PCP Family Medicine; Visit Provider Family Medicine | DX: Z91.89 Other specified personal risk factors, not elsewhere classified (principal); R79.89 Other specified abnormal findings of blood chemistry; I95.9 Hypotension, unspecified; I95.0 Idiopathic hypotension; Z79.899 Other long term (current) drug therapy | CPT/HCPCS: 80053; 84403; 85025; 85651; 86618; 86666; 86757 ==

== ENCOUNTER → 2024-02-09 08:00 | Outpatient (BNVA) | payer MEDICARE, OTHER, SELFPAY | PROVIDERS: PCP Family Medicine; Visit Provider Specialist | DX: M76.899 Other specified enthesopathies of unspecified lower limb, excluding foot (principal); M72.0 Palmar fascial fibromatosis [Dupuytren]; R29.90 Unspecified symptoms and signs involving the nervous system; G31.84 Mild cognitive impairment of uncertain or unknown etiology; M54.16 Radiculopathy, lumbar region; G47.33 Obstructive sleep apnea (adult) (pediatric) | CPT/HCPCS: 99213 ==

== ENCOUNTER 2024-03-18 12:18 | Outpatient (CLI) | payer MEDICARE, OTHER, SELFPAY ==
--- NOTE | 2024-03-18 12:24 | XRR_ITS ---
PROCEDURE INFORMATION: Exam: XR Right Hip Exam date and time: 03/18/2024 12:29 PM Age: 68 years old Clinical indication: Hip pain; Right hip; Additional info: Increased rest pain of right hip TECHNIQUE: Imaging protocol: Radiologic exam of the right hip. Views: 1 view hip with pelvis when performed. COMPARISON: CT abdomen pelvis w con* [id number] 04/03/2018 1:02 PM FINDINGS: Bones/joints: Mild osteoarthritis of the right hip without evidence of fracture or subluxation. Sacrum and coccyx are partially obscured by bowel gas/stool. Soft tissues: No gross soft tissue abnormality. XR/XR hip RT 2-3V wo/w pel* [id number] IMPRESSION: 1. Mild osteoarthritis without evidence of fracture or subluxation. If there is concern for labral, muscle or tendon pathology, follow-up outpatient MRI may be helpful.
== END 2024-03-18 12:19 | disposition home or self-care (01) ==
LOC: RAD 12:20
PROVIDERS: PCP Family Medicine; Visit Provider Family Medicine
DX: M16.11 Unilateral primary osteoarthritis, right hip (principal); I10 Essential (primary) hypertension; R79.89 Other specified abnormal findings of blood chemistry
CPT/HCPCS: 73502; 80053; 84403; 85025

== ENCOUNTER 2024-05-22 09:36 | Outpatient (RCR) | payer MEDICARE, OTHER, SELFPAY | END 2024-06-14 23:59 | disposition home or self-care (01) | LOC: SPT 09:36 | PROVIDERS: PCP Family Medicine; Visit Provider Family Medicine | DX: M54.50 Low back pain, unspecified (principal) | CPT/HCPCS: 97110; 97161; 97530 ==

== ENCOUNTER → 2024-06-06 07:40 | Outpatient (BNVA) | payer MEDICARE, OTHER, SELFPAY | PROVIDERS: PCP Family Medicine; Visit Provider Specialist | DX: M76.899 Other specified enthesopathies of unspecified lower limb, excluding foot (principal); M72.0 Palmar fascial fibromatosis [Dupuytren]; G31.84 Mild cognitive impairment of uncertain or unknown etiology; I20.0 Unstable angina; R29.90 Unspecified symptoms and signs involving the nervous system; M54.16 Radiculopathy, lumbar region; G47.33 Obstructive sleep apnea (adult) (pediatric) | CPT/HCPCS: 99214 ==

== ENCOUNTER 2024-06-15 06:00 | Outpatient (RCR) | payer MEDICARE, OTHER, SELFPAY | END 2024-07-12 23:59 | disposition home or self-care (01) | LOC: SPT 06:00 | PROVIDERS: PCP Family Medicine; Visit Provider Family Medicine | DX: M54.50 Low back pain, unspecified (principal) | CPT/HCPCS: 97110 ==

== ENCOUNTER 2024-07-08 08:39 | Outpatient (CLI) | payer MEDICARE, OTHER, SELFPAY ==
[2024-07-10 20:40] LABS: Phosphorylated tau217 0.09 pg/mL (< OR = 0.15)
== END 2024-07-08 08:40 | disposition home or self-care (01) ==
LOC: LAB 08:48
PROVIDERS: PCP Family Medicine; Visit Provider Specialist
DX: G31.84 Mild cognitive impairment of uncertain or unknown etiology (principal); I20.0 Unstable angina; G47.33 Obstructive sleep apnea (adult) (pediatric); R29.90 Unspecified symptoms and signs involving the nervous system; M54.16 Radiculopathy, lumbar region
CPT/HCPCS: 36415; 82542; 83520; 99214

== ENCOUNTER 2024-07-13 06:00 | Outpatient (RCR) | payer MEDICARE, OTHER, SELFPAY | END 2024-08-12 23:59 | disposition home or self-care (01) | LOC: SPT 06:00 | PROVIDERS: PCP Family Medicine; Visit Provider Family Medicine | DX: M54.50 Low back pain, unspecified (principal) | CPT/HCPCS: 97110 ==

== ENCOUNTER 2024-07-22 20:00 | Outpatient (CLI) | payer MEDICARE, OTHER, SELFPAY | END 2024-07-22 20:01 | disposition home or self-care (01) | LOC: SLEEP 07-23 01:34 | PROVIDERS: PCP Family Medicine; Visit Provider Specialist | DX: G47.33 Obstructive sleep apnea (adult) (pediatric) (principal) | CPT/HCPCS: 95811 ==

== ENCOUNTER 2024-08-13 06:30 | Outpatient (RCR) | payer MEDICARE, OTHER, SELFPAY | END 2024-08-30 11:54 | disposition home or self-care (01) | LOC: SPT 06:30 | PROVIDERS: PCP Family Medicine; Visit Provider Family Medicine | DX: M54.50 Low back pain, unspecified (principal) | CPT/HCPCS: 97530 ==

== ENCOUNTER → 2024-09-10 11:30 | Outpatient (BNVA) | payer MEDICARE, OTHER, SELFPAY | PROVIDERS: PCP Family Medicine; Visit Provider Specialist | DX: R41.3 Other amnesia (principal); R40.0 Somnolence; G47.33 Obstructive sleep apnea (adult) (pediatric); R29.90 Unspecified symptoms and signs involving the nervous system; M54.16 Radiculopathy, lumbar region; I20.0 Unstable angina; G47.00 Insomnia, unspecified | CPT/HCPCS: 99214 ==

== ENCOUNTER 2024-10-17 15:24 | Outpatient (CLI) | payer MEDICARE, OTHER, SELFPAY | END 2024-10-17 15:25 | disposition home or self-care (01) | LOC: SLEEP 15:26 | PROVIDERS: PCP Specialist; Referring Provider Specialist; Visit Provider Internal Medicine Pulmonary Disease | DX: G47.33 Obstructive sleep apnea (adult) (pediatric) (principal) | CPT/HCPCS: G0399 ==

== ENCOUNTER → 2024-12-19 13:59 | Outpatient (BNVA) | payer MEDICARE, OTHER, SELFPAY | PROVIDERS: PCP Family Medicine; Visit Provider Family Medicine | DX: R79.89 Other specified abnormal findings of blood chemistry (principal) | CPT/HCPCS: 84403 ==

== ENCOUNTER → 2025-02-18 14:23 | Outpatient (BNVA) | payer MEDICARE, OTHER, SELFPAY | PROVIDERS: PCP Family Medicine; Visit Provider Podiatrist Foot & Ankle Surgery | DX: M79.672 Pain in left foot (principal); M72.2 Plantar fascial fibromatosis | CPT/HCPCS: 73630; 99203 ==

== ENCOUNTER → 2025-03-11 10:11 | Outpatient (BNVA) | payer MEDICARE, OTHER, SELFPAY | PROVIDERS: PCP Family Medicine; Visit Provider Specialist | DX: G31.84 Mild cognitive impairment of uncertain or unknown etiology (principal); R40.0 Somnolence; G47.33 Obstructive sleep apnea (adult) (pediatric); M54.50 Low back pain, unspecified; H91.93 Unspecified hearing loss, bilateral | CPT/HCPCS: 99214 ==